=== PATIENT | male | born 1985 ===

== ENCOUNTER 2018-12-31 13:27 | Emergency (ER) | payer OTHER ==
[2018-12-31] MEDS ORDERED: Tmp-Smz 800 mg-160 mg DS Tab PO STA (14:14)
[2018-12-31] MEDS ORDERED: Tmp-Smz 800 mg-160 mg DS Tab ONE (14:23)
--- NOTE | 2018-12-31 14:51 | C.PDOC ---
History Of Present Illness 33 y/o male with no known medical hx c/o a 'ball' to left eyelid x 2 weeks. pt sts he gets theses 'balls' else where, he squeezes them, they drain, and then they go away. no hx dm or mrsa. no visual changes. no fevers. pt put warm compress on eyelid a few times with no drainage. Time Seen by Provider: 12/31/18 13:56 Chief Complaint (Nursing): Eye Problem History Per: Advertising Operations Coordinator ([id number]) History/Exam Limitations: language barrier Onset/Duration Of Symptoms: Days (14) Current Symptoms Are (Timing): Still Present Recent travel outside of the [place]: No Additional History Per: Patient Past Medical History Reviewed: Historical Data, Nursing Documentation, Vital Signs Vital Signs: Last Vital Signs Temp 98.8 F 12/31/18 13:38 Pulse 93 H 12/31/18 13:38 Resp 20 12/31/18 13:38 BP 131/84 12/31/18 13:38 Pulse Ox 100 12/31/18 13:38 Primary Care Provider: FAMILY PROVIDER,NO - Medical History PMH: No Chronic Diseases Family History: States: Unknown Family Hx - Social History Hx Alcohol Use: No Hx Substance Use: No - Immunization History Hx Tetanus Toxoid Vaccination: Yes Hx Influenza Vaccination: Yes Hx Pneumococcal Vaccination: Yes Review Of Systems Constitutional: Negative for: Fever Eyes: Positive for: Other ("ball" to left eye with swelling and pain ). Negative for: Vision Change Physical Exam - Physical Exam Appears: Non-toxic, No Acute Distress Skin: Warm, Dry, Other (left eyebrow and left upper eyelid erythematous with swelling. Purulent discharge from within eyebrow with mild pressure. ) Head: Atraumatic, Normacephalic Eye(s): bilateral: PERRL, EOMI Neck: Normal ROM, Supple Neurological/Psych: Oriented x3, Normal Speech, Normal Cognition ED Course And Treatment O2 Sat by Pulse Oximetry: 100 (on RA) Pulse Ox Interpretation: Normal Medical Decision Making Medical Decision Making: Plan: Tylenol 975mg PO Keflex 500mg PO Bactrim 1tab PO Wound Culture pt with cellulitis and abscess that is draining (drainage in eyebrow area) ; will tx with keflex and bactrim, f/u med clinic and sx, ophtho Disposition Counseled Patient/Family Regarding: Studies Performed, Diagnosis, Need For Followup, Rx Given - Disposition Referrals: [facility] [Outside] Jewel Montes MD [Staff Provider] - Disposition: HOME/ ROUTINE Disposition Time: 14:53 Condition: GOOD Additional Instructions: .[place] los antibiticos segn lo prescrito. Tylenol o Motrin para el dolor. Comp resas tibias en el prpado superior giuliana 3-4 veces por da. [place] ayuda al drenaje. Seguimiento maana en clnica mdica; Recomendar la derivacin al oculista o al cirujano general para el absceso. Si no puede ser visto en la clnica, regrese a la nicholas de emergencias maana o alessia para la revisin de la herida. Si el enrojecimiento o la hinchazn en la shanthi se extiende ms all del prpado superior giuliana, regrese a la nicholas de emergencias de inmediato. Take antibiotics as prescribed. Tylenol or Motrin for pain. Warm compresses to left uppper eyelid 3-4 times per day. THis helps drainage. Follow up tomorrow in medical clinic; recommend referral to eye doctor or general surgeon for abscess. If unable to be seen in clinic, return to ER tomorrow or Tues for wound check. If redness or swelling on face spreads beyond left upper eyelid, return to ER right away. Prescriptions: Cephalexin [cephalexin] 500 mg PO Q6 #40 cap Sulfamethoxazole/Trimethoprim [Bactrim DS 800 mg-160 mg] 1 tab PO BID #20 tab Instructions: Cellulitis (Skin Infection), Adult (DC), Abscess Drainage, Percutaneous (DC) Forms: Gen Discharge Inst Kyrgyz, [employer] (Kyrgyz) Print Language: IRISH - Clinical Impression Clinical Impression: Abscess of left upper eyelid, Cellulitis of left upper eyelid - PA / LIVESTOCK COUNTER / Resident Statement MD/DO has reviewed & agrees with the documentation as recorded. - Scribe Statement Rae Flores All medical record entries made by the Scribe were at my direction and personally dictated by me. I have reviewed the chart and agree that the record accurately reflects my personal performance of the history, physical exam, medical decision making, and the department course for this patient. I have also personally directed, reviewed, and agree with the discharge instructions and disposition.
[2018-12-31 15:15] VITALS: BP 116/80; PULSE 80; RESP 18; TEMP 98.6
[2018-12-31 16:19] VITALS: O2SAT 100
== END 2018-12-31 15:15 | disposition home or self-care (01) ==
LOC: C.ER 13:27
DX: H00.034 Abscess of left upper eyelid (principal)

== ENCOUNTER 2019-01-02 08:44 | Outpatient (CLI) | payer SELFPAY | END 2019-01-02 08:45 | disposition home or self-care (01) | LOC: C.LAB 08:44 | DX: Z13.220 Encounter for screening for lipoid disorders (principal); Z13.29 Encounter for screening for other suspected endocrine disorder; Z13.1 Encounter for screening for diabetes mellitus ==